=== PATIENT | female | born 1965 | race Caucasian/White ===

== ENCOUNTER 2018-03-16 06:03 | Observation (INO) ==
[2018-03-16] MEDS ORDERED: Morphine Inj 4 MG/ML Vial IV.PUSH ONE ×3 (06:39→07:42)
[2018-03-16] MEDS ORDERED: Pantoprazole Inj 40 MG Vial IV.PUSH ONE (06:42)
[2018-03-16] MEDS ORDERED: Sod Chloride 0.9% Inj 1,000 ML IV.CONT SCH (06:45)
--- NOTE | 2018-03-16 06:50 | ED ---
HPI General Chief complaint: Abdominal Pain Stated complaint: abd pain Time Seen by Provider: 03/16/18 06:07 Source: patient Mode of arrival: ambulatory Limitations: no limitations History of Present Illness HPI narrative: The patient is a 53 year old female who presents to the [facility] emergency department with a history of abdominal pain that suddenly awoke her from sound sleep at 4 AM. The patient reports that the pain is been constant and burning in character. She reports that the pain is located in the midepigastric area. She reports that she has had burning pains in this area in the past, however they do not last this long usually and is not this severe. She reports that the pain is a 10 out of 10 in severity. She reports having nausea without vomiting. The patient reports that she recently developed some pain in her right shoulder. She denies taking any jjum-[id number] anti- inflammatory pain medications for it, however she has been taking tizanidine as needed. This is the only new recent problem that she has had. She denies any dysuria, urinary frequency, urinary urgency, or hematuria. She denies having any diarrhea. She reports that she last moved her bowels earlier this morning. She denies having any blood in her stool or black or tarry stools. She denies having any recent changes in her weight. On review of systems otherwise, the patient denies having any known recent fevers, cough, congestion, neck pain , chest pain, shortness of breath,or neurologic symptoms. Related Data Home Medications Medication Instructions Recorded Confirmed levothyroxine 88 mcg PO DAILY 03/16/18 03/16/18 Allergies Allergy/AdvReac Type Severity Reaction Status Date / Time onion AdvReac Severe Swelling Verified 03/16/18 06:26 of Lip/Tongue/Throat amoxicillin AdvReac Intermediate Hives Verified 03/16/18 06:26 aspirin AdvReac Intermediate Hives Verified 03/16/18 06:26 Review of Systems ROS: all other systems reviewed are negative [facility] Medical History Medical History Closed fracture of lower jaw bone (Acute) Hypothyroid (Acute) Surgical History Surgical History H/O knee surgery (Acute) History of partial hysterectomy (Acute) Social History Social History Substance History: No History of Abuse Smoking Status: Never smoker How Often Do You Have a Drink Containing Alcohol: 2 to 4 times a month Immunization History Tetanus Immunization: >5 Years Exam Const General: cooperative, well developed and acute distress (Related to abdominal pain.) moderate Nutritional Appearance: well nourished Orientation: alert, awake and oriented x3 HENMT Head: normocephalic and atraumatic Nose: no nasal discharge and no epistaxis Mouth: moist mucous membranes Throat: posterior oropharynx normal and uvula midline Eyes Sclera: normal sclerae Pupils: PERRL EOM: EOM intact bilaterally Neck Neck: no meningeal signs, trachea midline and no JVD Resp Effort & Inspection: no use of accessory muscles Auscultation: clear to auscultation bilaterally Cardio Rate: regular rate Rhythm: regular rhythm Heart Sounds: no click, no gallops, no murmurs and no rubs GI Inspection: non-distended Palpation: soft, no hepatosplenomegaly, no guarding, not rigid and tender in the epigastrum and in the RUQ; not in the LLQ, not in the RLQ, not in the LUQ, not at McBurney's point, not suprapubicly, Weslh's sign negative and with no rebound tenderness Auscultation: normal bowel sounds Back/Spine/Pelvis Back: no CVA tenderness Skin General: dry skin (warm) Neuro General: alert, awake, oriented x3 and other (Grossly nonfocal.) Speech: speech normal Motor: no movement abnormalities noted Extrem General: normal to inspection (2+ pulses in all 4 extremities.), no calf tenderness, no clubbing, no cyanosis and no edema Psych Mood: congruent mood Affect: normal affect Judgment: judgment good Course Initial Documented Vital Signs Temperature 97.8 F 03/16/18 06:15 Pulse Rate 57 L 03/16/18 06:15 Respiratory Rate 18 03/16/18 06:15 Blood Pressure 122/57 L 03/16/18 06:15 Pulse Oximetry 99 03/16/18 06:15 Last Documented Vital Signs Temperature 97.8 F 03/16/18 06:21 Pulse Rate 59 L 03/16/18 06:21 Respiratory Rate 18 03/16/18 06:21 Blood Pressure 122/57 L 03/16/18 06:21 Pulse Oximetry 99 03/16/18 06:21 Medical Decision Making MDM Narrative Medical decision making narrative: During the course of the patient's emergency department visit, the patient's history, examination, and differential diagnosis were reviewed with the patient. The patient was placed on a monitoring tech with oximetry and frequent blood pressure monitoring. The patient had IV access obtained and blood work sent for analysis. Diagnostic evaluation was started regarding the patient's abdominal pain. The patient was initially provided morphine 2 mg IV, Zofran 4 mg IV, normal saline IV fluids, Protonix 40 mg IV. The patient's case was checked out to the oncoming emergency physician to disposition the patient based on the conclusion of her workup. The patient is pending laboratory studies and imaging studies. The patient is also pending reevaluation after pain medication administration. Medical Screen Exam Complete: Yes Emergency Medical Condition: Yes Differential Diagnosis Differential Diagnosis: Biliary colic, versus acute cholecystitis, versus pancreatitis, versus colitis, versus peptic ulcer disease Medical Records Medical records reviewed: Yes I reviewed the patient's medical records. Discharge Plan Discharge Disposition Patient Disposition: 30 Still Patient Physicians Team ED Provider: Bernie Carrera Rxs /Orders / Referrals /Forms Prescriptions: No Action levothyroxine 88 mcg Tablet 88 mcg PO DAILY RF: 0 Discharge Interventions Interventions: Vital Signs Last Done: 03/16/18 06:21 Status ED Status: With Doctor
[2018-03-16 07:20] LABS: Baso % (Auto) 0.5 % (0.0-2.0); Eos # (Auto) 0.2 th/mm3 (0.0-0.4); Hemoglobin 14.3 gm/dL (11.6-15.3); Lymph # (Auto) 1.7 th/mm3 (1.0-4.8); Lymph % (Auto) 22.7 % (9.0-44.0); Mean Corpuscular HGB Conc 33.2 % (32.0-36.0); Mean Corpuscular Hemoglobin 30.8 pg (27.0-34.0); Mean Corpuscular Volume 92.8 fL (80.0-100.0); Mean Platelet Volume 7.5 fL (7.0-11.0); Mono # (Auto) 0.4 th/mm3 (0.0-0.9); Mono % (Auto) 4.8 % (0.0-8.0); Neut # (Auto) 5.4 th/mm3 (1.8-7.7); Platelet Count 265 th/mm3 (150-450); Red Blood Count 4.63 mil/mm3 (4.00-5.30); Red Cell Distribution Width 13.4 % (11.6-17.2); White Blood Count 7.7 th/mm3 (4.0-11.0)
[2018-03-16 07:35] LABS: Activated Partial Thrombo Time 24.3 sec (24.3-30.1)
--- NOTE | 2018-03-16 07:35 | XR ---
EXAM DATE: 03/16/2018 6:42 AM EDT AGE/SEX: 53 years / Female INDICATIONS: Shortness of breath. CLINICAL DATA: This is the patient's initial encounter. Patient reports that signs and symptoms have been present for 1 day and indicates a pain score of 0/10. MEDICAL/SURGICAL HISTORY: None. None. COMPARISON: No prior exams available for comparison. FINDINGS: A single AP view of the chest demonstrates minimal left upper lobe density. Right lung clear. Heart n ormal in size. The cardiomediastinal contours are unremarkable. Osseous structures are intact. CONCLUSION: Minimal left upper lobe density could be minimal infiltrate. Electronically signed by: Mihir Rodriguez MD 03/16/2018 7:33 AM EDT
[2018-03-16 07:42] LABS: Prothrombin Time 9.8 sec (9.8-11.6)
--- NOTE | 2018-03-16 08:10 | US ---
EXAM DATE: 03/16/2018 7:12 AM EDT AGE/SEX: 53 years / Female INDICATIONS: Right upper quadrant pain. CLINICAL DATA: This is the patient's initial encounter. Patient reports that signs and symptoms have been present for 1 day and indicates a pain score of 10/10. MEDICAL/SURGICAL HISTORY: . Hypothyroidism. Fractured jaw bone. . Knee surgery. Partial hyste rectomy. COMPARISON: No prior exams available for comparison. MEASUREMENTS: Liver:__ 15.0 cm. Common Bile Duct:__ 4mm. FINDINGS: Liver: Normal echotexture without focal lesion or ductal dilatation. Portal Vein: Hepatopedal flow seen in portal vein. Common Duct: No intraluminal mass or stone visualized. Gallbladder: Demonstrates no wall thickening or pericholecystic fluid. Multiple mobile stones visual ized. Pancreas: The visualized portions are within normal limits Right Kidney: Normal echotexture and cortical thickness. No mass or hydronephrosis. Other: None. CONCLUSION: 1. Cholelithiasis without gallbladder wall thickening or pericholecystic fluid. Electronically signed by: Mihir Rodriguez MD 03/16/2018 8:08 AM EDT
[2018-03-16 08:25] LABS: Bacteria,Urine Many /hpf; Bilirubin,Urine Negative (Negative); Calcium Oxalate Crystals,Urine Many /hpf; Color,Urine Yellow (Yellw/Straw); Glucose,Urine (UA) Negative (Negative); Leukocyte Esterase,Urine Small (Negative); Mucus,Urine Few /lpf (Occasional); Nitrite,Urine Negative (Negative); Specific Gravity,Urine 1.019 (1.002-1.035); Squamous Epithelial Cell,Urine 19 /hpf (0-5)
[2018-03-16 08:26] LABS: Clarity,Urine Hazy (Clear)
[2018-03-16 08:34] LABS: Alanine Aminotransferase 39 U/L (10-53); Albumin 3.5 g/dL (3.4-5.0); Anion Gap 2 meq/L (5-15); Aspartate Aminotransferase 29 U/L (15-37); Blood Urea Nitrogen 11 mg/dL (7-18); Calcium 7.7 mg/dL (8.5-10.1); Carbon Dioxide 24.7 meq/L (21.0-32.0); Chloride 109 meq/L (98-107); Glomerular Filtration Rate 69 mL/min (>89); Glucose,Random 92 mg/dL (74-106); Lipase 152 U/L (73-393); Potassium 3.8 meq/L (3.5-5.1); Sodium 136 meq/L (136-145)
[2018-03-16 08:37] LABS: Alkaline Phosphatase 65 U/L (45-117); Creatine Kinase 250 U/L (26-192); Total Protein 6.7 g/dL (6.4-8.2)
[2018-03-16 08:49] LABS: CKMB Percent 0.8 % (0.0-4.0); Creatine Kinase MB 2.1 ng/mL (0.5-3.6)
[2018-03-16] MEDS ORDERED: Morphine Sulfate Inj 2 MG/ML Vial IV.PUSH ONE (08:52)
[2018-03-16] MEDS ORDERED: HYDROmorphone PF Inj 2 MG/ML Vial IV.PUSH ONE (09:35)
[2018-03-16] MEDS ORDERED: Morphine Sulfate Inj 2 MG/ML Vial IV.PUSH PRN (10:35)
--- NOTE | 2018-03-16 10:44 | P.HPIM ---
History of Present Illness Primary Care Physician: Acosta Dash Chief Complaint: abdominal pain History of Present Illness: patient is a 53 y/o female with no significant past medical history other than hypothyroidism presented to ER with abdominal pain. she says that the the pain started around four this morning. pain was in epigastric and RUQ area with no radiation. pain was severe in intensity and was associated with mild nausea but with no emesis. she denies any fever, chills or change in BM. she doesn't recall any similar episodes of abdominal pain in the past. Review of Systems All other systems reviewed negative except as stated in HPI PMF[facility] - History History Provided By: Patient - Medical History Medical History: Medical History (Last Reviewed 03/16/18 @ 10:39 by Enzo Saravia MD) Closed fracture of lower jaw bone Hypothyroid - Surgical History Surgical History: Surgical History (Last Reviewed 03/16/18 @ 10:39 by Enzo Saravia MD) H/O knee surgery History of partial hysterectomy - Family History Family History: Family History (Last Updated 03/16/18 @ 10:39 by Enzo Saravia MD) Other Family history of cancer - Tobacco History Smoking Status: Never smoker - Alcohol History How Often Do You Have a Drink Containing Alcohol: 2 to 4 times a month - Substance Use History Substance History: No History of Abuse - Immunization History Tetanus Immunization: >5 Years Medications and Allergies Active Medications: Active Medications Sodium Chloride (Ns Inj) 1,000 mls @ 125 mls/hr IV.CONT .Q8H [facility] Stop: 03/16/18 14:44 Last Admin: 03/16/18 07:22 Dose: 125 mls/hr Sodium Chloride (Ns Flush) 2 ml IV.FLUSH PRN PRN PRN Reason: FLUSH AFTER USING IV ACCESS Allergies Allergy/AdvReac Type Severity Reaction Status Date / Time onion AdvReac Severe Swelling Verified 03/16/18 06:26 of Lip/Tongue/Throat amoxicillin AdvReac Intermediate Hives Verified 03/16/18 06:26 aspirin AdvReac Intermediate Hives Verified 03/16/18 06:26 Home Medications Medication Instructions Recorded Confirmed Type levothyroxine 88 mcg PO DAILY 03/16/18 03/16/18 History Exam Vital signs: Vital Signs 03/16/18 06:15 03/16/18 06:21 03/16/18 07:29 Temperature 97.8 F 97.8 F Pulse Rate 57 L 59 L 69 Respiratory Rate 18 18 Blood Pressure 122/57 L 122/57 L 134/62 Pulse Oximetry 99 99 100 Intake & Output 03/15/18 03/16/18 03/16/18 18:59 06:59 18:59 Weight 86.183 kg - Constitutional no acute distress - Routine HEENT Exam Eye: Present: PERRL - Routine Neck Exam Present: supple - Routine Respiratory Exam Present: CTA bilaterally - Routine Cardiovascular Exam Present: RRR - Routine Abdominal Exam Present: soft, tenderness (epigastric and RUQ tenderness.) - Routine Extremities Exam Comments: no pedal edema. - Routine Neurological Exam Present: alert, oriented X3 Results - Labs CBC & Chem 7: 03/16/18 06:40 03/16/18 07:56 Labs: Short CBC 03/16/18 Range/Units 06:40 WBC 7.7 (4.0-11.0) th/mm3 Hgb 14.3 (11.6-15.3) gm/dL Hct 43.0 (35.0-46.0) % Plt Count 265 (150-450) th/mm3 BMP 03/16/18 07:56 Sodium 136 Potassium 3.8 Chloride 109 H Carbon Dioxide 24.7 BUN 11 Creatinine 0.86 Calcium 7.7 L Cardiac Enzymes 03/16/18 03/16/18 Range/Units 06:40 07:56 Total Creatine Kinase Cancelled 250 H CK-MB (CK-2) 2.1 (0.5-3.6) ng/mL Troponin I Cancelled Less than 0.02 L Liver Function 03/16/18 Range/Units 07:56 Total Bilirubin 0.4 (0.2-1.0) mg/dL AST 29 (15-37) U/L ALT 39 (10-53) U/L Alkaline Phosphatase 65 (45-117) U/L Albumin 3.5 (3.4-5.0) g/dL Urine 03/16/18 Range/Units 07:54 Urine Color Yellow (Yellw/Straw) Urine Clarity Hazy H (Clear) Urine pH 5.0 (5.0-8.5) Ur Specific Colby 1.019 (1.002-1.035) Urine Protein Negative (Neg-Trace) mg/dL Urine Glucose (UA) Negative (Negative) mg/dL - Imaging Impressions Chest X-Ray 03/16/18 06:42 CONCLUSION: Minimal left upper lobe density could be minimal infiltrate. Gallbladder Ultrasound 03/16/18 07:12 CONCLUSION: 1. Cholelithiasis without gallbladder wall thickening or pericholecystic fluid. Caprini VTE Risk Assessment Caprini VTE Risk Assessment: No/Low Risk (score <= 1) Caprini Risk Assessment Model: Point Value = 1 Point Value = 2 Point Value = 3 Point Value = 5 Age 41-60 Minor surgery BMI > 25 kg/m2 Swollen legs Varicose veins or History of unexplained or recurrent spontaneous Oral contraceptives or hormone replacement Sepsis (< 1 month) Serious lung disease, including pneumonia (< 1 month) Abnormal pulmonary function Acute myocardial infarction Congestive heart failure (< 1 month) History of inflammatory bowel disease Medical patient at bed rest Age 61-74 Arthroscopic surgery Major open surgery (> 45 min) Laparoscopic surgery (> 45 min) Malignancy Confined to bed (> 72 hours) Immobilizing plaster cast Central venous access Age >= 75 History of VTE Family history of VTE Factor V Leiden Prothrombin [id number] Lupus anticoagulant Anticardiolipin antibodies Elevated serum homocysteine Heparin-induced thrombocytopenia Other congenital or acquired thrombophilia Stroke (< 1 month) Elective arthroplasty Hip, pelvis, or leg fracture Acute spinal cord injury (< 1 month) Prophylaxis Regimen: Total Risk Factor Score Risk Level Prophylaxis Regimen 0-1 Low Early ambulation 2 Moderate Order ONE of the following: *Sequential Compression Device (SCD) *Heparin 5000 units SQ BID 3-4 Higher Order ONE of the following medications: *Heparin 5000 units SQ TID *Enoxaparin/Lovenox 40 mg SQ daily (WT < 150 kg, CrCl > 30 mL/min) *Enoxaparin/Lovenox 30 mg SQ daily (WT < 150 kg, CrCl > 10-29 mL/min) *Enoxaparin/Lovenox 30 mg SQ BID (WT < 150 kg, CrCl > 30 mL/min) AND/OR *Sequential Compression Device (SCD) 5 or more Highest Order ONE of the following medications: *Heparin 5000 units SQ TID (Preferred with Epidurals) *Enoxaparin/Lovenox 40 mg SQ daily (WT < 150 kg, CrCl > 30 mL/min) *Enoxaparin/Lovenox 30 mg SQ daily (WT < 150 kg, CrCl > 10-29 mL/min) *Enoxaparin/Lovenox 30 mg SQ BID (WT < 150 kg, CrCl > 30 mL/min) AND *Sequential Compression Device (SCD) Assessment and Plan - Plan A/P - biliary colic; abdominal pain/ cholelithiasis patient denies any previous biliary colic episodes in the past. abdominal sonogram with cholelithiasis with no cholecystitis keep NPO for now till pain is better controlled- continue with IV fluid and pain control/ antiemetics as needed. -hypothyroidism; resume home meds. Discharge Planning: dc home within the next 24 hrs if pain is better controlled. f/u with pcp and general surgery as outpatient and this was d/w the patient.
[2018-03-16] MEDS ORDERED: Acetaminophen 325 MG Tablet PO PRN (10:45)
[2018-03-16] MEDS: HYDROmorphone PF Inj 2 MG/ML Vial IV.PUSH PRN ×4 (12:36→21:48)
--- NOTE | 2018-03-16 16:53 | ECG ---
Date Performed: 03/16/2018 Time Performed: 10:27:21 PTAGE: 53 years EKG: SINUS BRADYCARDIA MARKED LEFT AXIS DEVIATION ABNORMAL ECG NO PREVIOUS TRACING DOCTOR: Yashira Christianson Interpretating Date/Time 03/16/2018 16:52:11
[2018-03-17] MEDS: HYDROmorphone PF Inj 2 MG/ML Vial IV.PUSH PRN ×7 (00:49→23:07)
[2018-03-17] MEDS: Levothyroxine 88 MCG Tablet PO SCH (05:42)
--- NOTE | 2018-03-17 10:58 | P.CONGS ---
[facility] Gen Surgery Consult Note Consult date: 03/17/18 Reason for consult: gallstones Requesting physician: Enzo Saravia Narrative: This is a 53 year old female with a past medical history of hypothyroidism who presented to the ED yesterday with complaints of sudden acute abdominal pain that woke her up at 4AM yesterday. She reports no nausea or vomiting. She reports no fevers but some chills. She reports no change in her bowel patterns. She does state that she may have had a similar mild episode of pain many months ago that resolved on its own. An US of the gallbladder reveals gallstones without pericholecystic fluid or gallbladder wall thickening. A General Surgery consultation has been requested. Review of Systems All other systems reviewed negative except as stated in [facility] - History History Provided By: Patient - Medical History Medical History: Medical History (Last Reviewed 03/20/18 @ 11:49 by Thomas Guzman MD) Closed fracture of lower jaw bone Hypothyroid - Surgical History Surgical History: Surgical History (Last Reviewed 03/20/18 @ 11:49 by Thomas Guzman MD) H/O knee surgery History of partial hysterectomy - Family History Family History: Family History (Last Reviewed 03/20/18 @ 11:49 by Thomas Guzman MD) Other Family history of cancer - Social History I have reviewed the patient's Social History: Yes - Tobacco History Second Hand Smoke Exposure: No Smoking Status: Never smoker - Alcohol History How Often Do You Have a Drink Containing Alcohol: 2 to 4 times a month - Substance Use History Substance History: No History of Abuse - Immunization History Tetanus Immunization: >5 Years Medications and Allergies Allergies Allergy/AdvReac Type Severity Reaction Status Date / Time onion AdvReac Severe Swelling Verified 03/16/18 06:26 of Lip/Tongue/Throat amoxicillin AdvReac Intermediate Hives Verified 03/16/18 06:26 aspirin AdvReac Intermediate Hives Verified 03/16/18 06:26 Home Medications Medication Instructions Recorded Confirmed Type levothyroxine 88 mcg PO DAILY 03/16/18 03/16/18 History Active Medications: Active Medications Acetaminophen (Tylenol) 650 mg PO Q4H PRN PRN Reason: fever Hydromorphone HCl (Dilaudid Pf Inj) 1 mg IV.PUSH Q3H PRN PRN Reason: ABDOMINAL PAIN Last Admin: 03/17/18 08:48 Dose: 1 mg Piperacillin/Tazobactam/Dextrose (Zosyn 3.375 Gm Premix) 50 mls @ 100 mls/hr IV.SIG ONCE ONE Stop: 03/17/18 11:29 Levothyroxine Sodium (Synthroid) 88 mcg PO DAILY@0600 WILEY Last Admin: 03/17/18 05:42 Dose: 88 mcg Ondansetron HCl (Zofran Inj) 4 mg IV.PUSH Q8H PRN PRN Reason: nausea Last Admin: 03/16/18 15:28 Dose: 4 mg Sodium Chloride (Ns Flush) 2 ml IV.FLUSH PRN PRN PRN Reason: FLUSH AFTER USING IV ACCESS Exam Vital signs: Vital Signs 03/16/18 12:00 03/16/18 16:00 03/16/18 20:00 Temperature 97.8 F 97.8 F 98.1 F Pulse Rate 60 59 L 60 Respiratory Rate 14 16 17 Blood Pressure 120/57 L 122/80 132/62 Pulse Oximetry 96 97 96 03/16/18 22:18 03/17/18 00:00 03/17/18 01:20 Temperature 97.9 F Pulse Rate 55 L Respiratory Rate 17 17 18 Blood Pressure 123/63 Pulse Oximetry 96 03/17/18 06:12 03/17/18 08:00 Temperature 97.9 F Pulse Rate 60 Respiratory Rate 18 17 Blood Pressure 122/75 Pulse Oximetry 99 Intake & Output 03/16/18 03/17/18 03/17/18 18:59 06:59 18:59 Intake Total 1480 / 1480 580 / 580 Balance 1480 / 1480 580 / 580 Weight 86 kg Intake: IV 1000 / 1000 NS Inj 1,000 ML @ 125 mls/hr IV 1000 / 1000 .CONT .Q8H [facility] Rx#:[id number] Oral 480 / 480 580 / 580 Other: # Voids 2 3 Narrative: GENERAL: Very pleasant 53 year old female resting in bed in no acute distress. SKIN: Warm and dry. HEAD: Atraumatic. Normocephalic. EYES: Pupils equal and round. No scleral icterus. No injection or drainage. ENT: No nasal bleeding or discharge. Mucous membranes pink and moist. NECK: Trachea midline. CARDIOVASCULAR: Regular rate and rhythm. RESPIRATORY: No accessory muscle use. Clear to auscultation. Breath sounds equal bilaterally. GASTROINTESTINAL: Abdomen soft, nondistended. She does have midepigastric and RUQ tenderness with palpation. Faint laparoscopic scars on abdomen. No visible hernias. MUSCULOSKELETAL: Extremities without clubbing, cyanosis, or edema. No obvious deformities. NEUROLOGICAL: Awake and alert. No obvious cranial nerve deficits. Motor grossly within normal limits. Five out of 5 muscle strength in the arms and legs. Normal speech. PSYCHIATRIC: Appropriate mood and affect; insight and judgment normal. Results - Labs 03/16/18 06:40 03/16/18 07:56 - Imaging Imaging: ITS Impressions Chest X-Ray 03/16/18 06:42 CONCLUSION: Minimal left upper lobe density could be minimal infiltrate. Gallbladder Ultrasound 03/16/18 07:12 CONCLUSION: 1. Cholelithiasis without gallbladder wall thickening or pericholecystic fluid. Additional studies: US gallbladder Assessment and Plan - Assessment (1) Cholelithiasis Code(s): K80.20 - Calculus of gallbladder without cholecystitis without obstruction Status: Acute Plan: 53 year old female with symptomatic cholelithiasis -Plan for OR this afternoon---laparoscopic cholecystectomy; possible open; possible IOC -NPO -IVF -Pain control -Obtain consents -Discussed procedure in detail including risks and benefits -All questions answered -Thank you for this consult; We will continue to follow - Plan Discussed Condition With: Dr. Thomas Street RN Ms. Lawrence - Attending Attestation patient seen at bedside ruq pain, symptomatic cholelithiasis will plan for lap georgette, discussed with patient The exam, history, and the medical decision-making described in the above note were completed with the assistance of the mid-level provider. I reviewed and agree with the findings presented. I attest that I had a [id number] encounter with the patient on the same day, and personally performed and documented my assessment and findings in the medical record.
[2018-03-17] MEDS ORDERED: Piperacil/Tazo 3.375 GM Premix 50 ML IV.SIG ONE (11:00)
--- NOTE | 2018-03-17 11:12 | P.PN ---
Subjective Interval history: Nursing reports the patient complaining of some abdominal pain since last night. Denies any vomiting. Physical Exam Vital signs: Vital Signs 03/16/18 12:00 03/16/18 16:00 03/16/18 20:00 Temperature 97.8 F 97.8 F 98.1 F Pulse Rate 60 59 L 60 Respiratory Rate 14 16 17 Blood Pressure 120/57 L 122/80 132/62 Pulse Oximetry 96 97 96 03/16/18 22:18 03/17/18 00:00 03/17/18 01:20 Temperature 97.9 F Pulse Rate 55 L Respiratory Rate 17 17 18 Blood Pressure 123/63 Pulse Oximetry 96 03/17/18 06:12 03/17/18 08:00 Temperature 97.9 F Pulse Rate 60 Respiratory Rate 18 17 Blood Pressure 122/75 Pulse Oximetry 99 Intake & Output 03/16/18 03/17/18 03/17/18 18:59 06:59 18:59 Intake Total 1480 / 1480 580 / 580 Balance 1480 / 1480 580 / 580 Weight 86 kg Intake: IV 1000 / 1000 NS Inj 1,000 ML @ 125 mls/hr IV 1000 / 1000 .CONT .Q8H [facility] Rx#:[id number] Oral 480 / 480 580 / 580 Other: # Voids 2 3 Narrative: Patient has some scattered tenderness to palpation over the abdomen diffusely, most prominently quadrant and epigastrium Abdomen is otherwise soft, nondistended Unlabored breathing Results - Labs CBC & Chem 7: 03/16/18 06:40 03/16/18 07:56 Assessment and Plan - Plan A/P - biliary colic; abdominal pain/ cholelithiasis patient denies any previous biliary colic episodes in the past. abdominal sonogram with cholelithiasis with no cholecystitis General surgery following, planning for surgery today pain medication and antiemetics, zosyn starting Protonix
[2018-03-17] MEDS: Pantoprazole Inj 40 MG Vial IV.PUSH SCH (11:50)
[2018-03-17] MEDS: Sod Chloride 0.9% Inj 1,000 ML IV.CONT SCH ×2 (11:50→20:52)
[2018-03-17] MEDS ORDERED: Chlorhexidine Gluconate 2% 1 Pack (2 Cloths) TOPICAL ONE (13:03)
[2018-03-17] MEDS ORDERED: Metoprolol Tartrate 25 MG Tablet PO ONE (13:03)
[2018-03-17] MEDS ORDERED: Sodium Chlor 0.9% Inj 500 ML IV.SIG SCH (14:00)
[2018-03-17] MEDS ORDERED: Bupivacaine/Epinephrine Inj 0.25% 50 ML Vial ONE (18:53)
[2018-03-17] MEDS ORDERED: fentaNYL Citrate Inj 100 MCG/2 ML Ampul ONE ×2 (19:08→20:54)
[2018-03-17] MEDS ORDERED: HYDROmorphone PF Inj 2 MG/ML Vial ONE (19:08)
[2018-03-17] MEDS ORDERED: Lidocaine PF 1% Inj 5 ML Syringe OTHER ONE (19:15)
[2018-03-17] MEDS ORDERED: Glycopyrrolate Inj 1 MG/5 ML Syringe IV.PUSH ONE (19:15)
[2018-03-17] MEDS ORDERED: Neostigmine Inj 5 MG/5 ML Syringe IV.PUSH ONE (19:15)
--- NOTE | 2018-03-17 22:26 | P.OP ---
- Preoperative Diagnosis (1) Symptomatic cholelithiasis - Postoperative Diagnosis (1) Symptomatic cholelithiasis Procedure: lap georgette Surgeon: Thomas Guzman MD Estimated blood loss (mL): 10 Pathology: other (gallbladder) Operation and Findings: stones inflamed gallbladder
[2018-03-18] MEDS ORDERED: Sodium Chloride 0.9% 2 ML Flush PRN IV.FLUSH (01:21)
[2018-03-18] MEDS: HYDROmorphone PF Inj 2 MG/ML Vial IV.PUSH PRN ×3 (02:10→08:27)
[2018-03-18] MEDS: Levothyroxine 88 MCG Tablet PO SCH (05:10)
[2018-03-18] MEDS ORDERED: Sodium Chloride 0.9% 2 ML Flush BID IV.FLUSH SCH (09:00)
[2018-03-18] MEDS: oxyCODONE/Acetaminophen 10/325 Tablet PO PRN ×2 (10:18→14:15)
[2018-03-18] MEDS: Sod Chloride 0.9% Inj 1,000 ML IV.CONT SCH (10:49)
[2018-03-18] MEDS: Pantoprazole Inj 40 MG Vial IV.PUSH SCH (12:20)
[2018-03-18 13:01] VITALS: BP 127/61; PULSE 64; TEMP 97.8; O2SAT 96
[2018-03-18 15:22] VITALS: RESP 18
--- NOTE | 2018-03-18 16:19 | P.DS ---
Date of admission: 03/16/18 09:50 Primary care physician: Acosta Dash Brief History from admission: patient is a 53 y/o female with no significant past medical history other than hypothyroidism presented to ER with abdominal pain. she says that the the pain started around four this morning. pain was in epigastric and RUQ area with no radiation. pain was severe in intensity and was associated with mild nausea but with no emesis. she denies any fever, chills or change in BM. she doesn't recall any similar episodes of abdominal pain in the past. DS: Medications - Discharge Medications Prescriptions: oxycodone-acetaminophen 1 tab PO Q4H PRN #15 tab PRN Reason: acute post op pain exception DS: Summary Hospital Course: Patient was admitted, started on antibiotics. Underwent laparoscopic cholecystectomy. Tolerated p.o. intake well. Patient has met maximal benefit from hospitalization is clinically stable for discharge. - Time Spent with Patient Total time spent providing and/or coordinating discharge services: Less than 30 minutes - Quality: VTE Deep Vein Thrombosis/Pulmonary Embolism Present on Admission: No Exam Vital signs: Vital Signs 03/17/18 20:00 03/17/18 20:46 03/17/18 21:00 Temperature 97.5 F L 97.6 F Pulse Rate 99 H 68 53 L Respiratory Rate 18 20 16 Blood Pressure 139/65 167/84 H 140/65 Pulse Oximetry 96 99 03/17/18 21:15 03/17/18 21:30 03/17/18 23:40 Temperature 97.8 F Pulse Rate 71 51 L Respiratory Rate 17 20 18 Blood Pressure 138/66 151/79 H Pulse Oximetry 99 99 03/18/18 02:08 03/18/18 02:40 03/18/18 03:51 Temperature Pulse Rate Respiratory Rate 18 18 18 Blood Pressure Pulse Oximetry 03/18/18 04:00 03/18/18 05:40 03/18/18 08:00 Temperature 97.8 F 98.2 F Pulse Rate 56 L 54 L Respiratory Rate 18 18 17 Blood Pressure 143/65 H 134/58 L Pulse Oximetry 98 98 03/18/18 10:18 03/18/18 11:24 03/18/18 12:00 Temperature 97.8 F Pulse Rate 64 Respiratory Rate 18 18 17 Blood Pressure 127/61 Pulse Oximetry 96 03/18/18 15:22 Temperature Pulse Rate Respiratory Rate 18 Blood Pressure Pulse Oximetry Intake & Output 03/17/18 03/18/18 03/18/18 18:59 06:59 18:59 Intake Total 730 / 730 1240 / 1240 1000 / 1000 Output Total 50 / 50 Balance 730 / 730 1190 / 1190 1000 / 1000 Weight 92.4 kg Intake: IV 670 / 670 0 / 0 1000 / 1000 NS Inj 1,000 ML @ 100 mls/hr IV 620 / 620 0 / 0 1000 / 1000 .CONT .Q10H WILEY Rx#:[id number] Zosyn 3.375 GM Premix 50 ML @ 50 / 50 100 mls/hr IV.SIG ONCE ONE Rx#: [id number] Oral 60 / 60 240 / 240 Anesthesia Amount 1000 / 1000 Output: Estimated Blood Loss 50 / 50 Other: # Voids 6 1 Narrative: Laparoscopic incisions look clean dry and intact Abdomen soft, minimally tender to palpation, nondistended Results Procedures completed during hospitalization: Laparoscopic cholecystectomy Pending studies at discharge: Pending at discharge 03/17/18 07:23 Surgical [PTH] Routine Labs on day of discharge: Labs from last 24 hours 03/17/18 18:12 POC Glucose 94 - Impressions ITS Impressions Chest X-Ray 03/16/18 06:42 CONCLUSION: Minimal left upper lobe density could be minimal infiltrate. Gallbladder Ultrasound 03/16/18 07:12 CONCLUSION: 1. Cholelithiasis without gallbladder wall thickening or pericholecystic fluid. Discharge Plan - Discharge Disposition Patient Disposition: 01 Discharge Home - Discharge Condition Condition: Stable - Discharge Order Discharge Orders: Discharge Order (Routine); Ordered 03/18/18 Ordered By: Blu Laird - Physicians Team Attending Provider: Blu Laird Other Providers: [email or web address] ([email or web address]),Insurance ; Thomas Guzman MD
--- NOTE | 2018-03-18 17:25 | MP ---
cc: Thomas Guzman MD DATE OF OPERATION: 03/17/2018 DATE OF PROCEDURE: 03/17/2018 PREOPERATIVE DIAGNOSIS: Symptomatic cholelithiasis. POSTOPERATIVE DIAGNOSIS: Symptomatic cholelithiasis. PROCEDURE PERFORMED: Laparoscopic cholecystectomy. SURGEON: Thomas Guzman MD CAT SCAN TECH: None. ANESTHESIA: GETA. IV FLUIDS: See anesthesia sheet. ESTIMATED BLOOD LOSS: 5 mL DRAINS: None. SPECIMENS: None. WOUND CLASSIFICATION: Clean/contaminated. SPECIMENS: Gallbladder. FINDINGS: Distended gallbladder, multiple large gallstones, minimal inflammation. INDICATIONS: The patient is a 53-year-old female who presents with acute onset of right upper quadrant abdominal pain. The patient states the pain started 24 hours ago. The patient noted to have gallstones on ultrasound exam. Decision was made for laparoscopic cholecystectomy. DETAILS OF PROCEDURE: The patient was taken to the operating suite, placed in supine position, prepped and draped in the usual sterile fashion after induction of general endotracheal anesthesia. Brief timeout done stating correct patient, procedure, and surgical site. We were all in agreement. Attention was first directed to the umbilicus superiorly where local anesthetic injected and a stab colleen incision was made. The abdomen was then insufflated with a Veress needle. A saline drop test confirmed intra-abdominal placement. The Veress needle was changed for a 5 mm Visiport Optiview. A cursory inspection revealed no evidence of injury. Three other ports were placed, including a 12 mm epigastric followed by two 5 mm right subcostal ports. The patient was placed in reverse Trendelenburg airplane to the left. The gallbladder fundus was grasped and retracted cephalad. The cystic duct and cystic artery were dissected out in the usual standard manner. Two clips were placed proximal cystic duct and 1 distal. Endo Kodi used to transect this. Cystic artery, small several branches; one clip placed proximal and one distal and EndoShears used to transect this. Small little vessel, one clip also placed proximal and EndoShears used to transect as well. The gallbladder was removed from the gallbladder fossa with a hook electrode Bovie cautery. It was placed in an EndoCatch bag and removed from the abdomen. Suction irrigation done until the effluent was clear. SNoW was placed along with some Som for improved hemostasis. The pneumoperitoneum was removed. Ports were removed. The epigastric port was closed with 0-Vicryl. The 5 mm ports were closed with 4-0 Monocryl subcuticular suture. Sterile dressings in place with Dermabond. The patient tolerated procedure well. No operative complications. All lap and instrument counts were correct at the end of the procedure. The patient was extubated and taken to PACU. MD [email or web address] Coelho/ania/becky , 03:45 PM , 03:52 PM ALAN
== END 2018-03-18 16:17 | disposition home or self-care (01) ==
LOC: NEPE 06:03 → NEDA 09:50 → INTOOBSV 09:50 → N07 11:20
PROVIDERS: ADMIT Hospitalist; ATTEND Hospitalist